=== PATIENT | male | born 1995 | race Caucasian/White ===

== ENCOUNTER 2023-01-18 12:36 | Outpatient (CLI) | payer OTHER ==
--- NOTE | 2023-01-19 09:20 | MRI Report ---
PROCEDURE: SHOULDER WO - RT INDICATIONS: SHOULDER INJURY TECHNIQUE: Noncontrast oblique coronal T2 fast spin echo with fat saturation, oblique sagittal T1 spin echo and T2 fast spin echo with fat saturation, axial T1 spin echo and T2 fast spin echo with fat saturation t hrough the shoulder. COMPARISON: None. FINDINGS: Image quality: Excellent. Rotator cuff: There is mild supraspinatus, infraspinatus and subscapularis tendinosis without high-gr malini tendon tear. Appear intact throughout. No rotator cuff muscle atrophy on sagittal images. Bones and bursae: Mild edema in the posterior lateral aspect of the humeral head (series 4 image 10) , suspicious for a small Hill-Sachs lesion. 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 No acute, displaced fractures. Mild acromioclavicular joint degeneration. A full-thickness cartilage defect in the anterior-inferior aspect of the glenoid. Small subcoracoid bursal fluid consistent wi th bursitis. Capsule and soft tissues: In the absence of intra-articular contrast, the labrum and glenohumeral li gaments appear intact. The long head of the biceps tendon demonstrates normal location and morpholog y. The rotator interval appears normal, without fibrosis. The coracohumeral ligament is normal in t hickness. IMPRESSION: 1. 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 Recommend clinical correlation for anterior inferior shoulder dis location. 2. A full-thickness cartilage defect is present in the anterior inferior glenoid. 3. Low-grade supraspinatus, infraspinous and subsequent tendinosis. No tendon tear. 4. Moderate acromioclavicular arthrosis. 5. Subcoracoid bursitis. Reviewed by: Rianna Goel MD on 01/19/2023 9:18 AM PDT Approved by: Rianna Goel MD on 01/19/2023 9:18 AM PDT Station ID: [id number]
== END 2023-01-18 12:37 | disposition home or self-care (01) ==
LOC: DI 12:36
DX: R93.6 Abnormal findings on diagnostic imaging of limbs (principal); M94.261 Chondromalacia, right knee; M67.863 Other specified disorders of tendon, right knee; M19.011 Primary osteoarthritis, right shoulder; M75.51 Bursitis of right shoulder